=== PATIENT | male | born 1980 | race African-American/Black ===

== ENCOUNTER 2018-06-03 09:37 | Emergency (ER) | payer MEDICAID ==
--- NOTE | 2018-06-03 10:13 | ED Physician Chart ---
ED Chief Complaint/HPI - Patient Information Date Seen:: 06/03/18 Time Seen:: 09:50 Chief Complaint:: cough History of Present Illness:: Patient's had a cough for 3 weeks sometimes productive of green sputum. For the same 3 week period patient has had a right superior chest pain occasionally pleuritic. Allergies:: Allergies Allergy/AdvReac Type Severity Reaction Status Date / Time No Known Allergies Allergy Verified 06/03/18 09:49 Vitals:: Vital Signs - 8 hr 06/03/18 09:51 Temp 98.5 F HR 69 RR 18 BP 120/61 O2 Sat % 100 Historian:: Patient Review:: Nurse's Note Reviewed ED Review of Systems - Review of Systems General/Constitutional: No fever, No chills Skin: No skin lesions Head: No headache Eyes: No loss of vision ENT: No earache Neck: No neck pain, No swelling Cardio Vascular: No chest pain Pulmonary: No SOB, Cough, Sputum GI: No nausea, No vomiting, No diarrhea Musculoskeletal: No bone or joint pain, No muscle pain Psychiatric: No prior psych history, No depression Hematopoietic: No bruising Neurological: No syncope, No focal symptoms ED Past Medical History - Past Medical History Past Medical History: Other (history of bronchitis) Family History: None Social History: Smoker, Alcohol (smokes about one pack of cigarettes a day; drinks alcohol 3 times a week), Other Surgical History: None Psychiatricy History: None Medication: Reviewed Family Medical History - Family Member Mother History Unknown: Yes ED Physical Exam - Physical Examination General/Constitutional: Awake, Well-developed, well-nourished, Alert, No distress, GCS 15, Non-toxic appearing, Ambulatory Head: Atraumatic Eyes: Lids, conjuctiva normal, PERRL, EOMI Skin: Nl inspection, No rash, No skin lesions, No ecchymosis, Well hydrated, No lymphadenopathy ENMT: External ears, nose nl, Nasal exam nl, Lips, teeth, gums nl Neck: Nontender, Full ROM w/o pain, No JVD, No nuchal rigidity, No bruit, No mass, No stridor Respiratory: Nl effort/Exclusion, Clear to Auscultation, No Wheeze/Rhonchi/Rales Cardio Vascular: RRR, No murmur, gallop, rubs, NL S1 S2 GI: No tenderness/rebounding/guarding, No organomegaly, No hernia, Normal BS's, Nondistended, No mass/bruits, No McBurney tenderness : No CVA tenderness Extremities: No tenderness or effusion, Full ROM, normal strength in all extremities, No edema, Normal digits & nails Neuro/Psych: Alert/oriented, DTR's symmetric, Normal sensory exam, Normal motor strength, Judgement/insight normal, Mood normal, Normal gait, No focal deficits Misc: Normal back, No paraspinal tenderness ED Labs/Radiology/EKG Results - Radiology Results Results: Chest x-ray normal - EKG Interpretations Rate & Rhythm: normal sinus rhythm with a rate of 68 [place]: normal Comments:: J-point elevation especially in V5 and V6 compatible with early repolarization ED Assessment - Assessment General Assessment: Antibiotics would not be effective for viral infection ED Septic Shock - . Is Septic Shock (SBP<90, OR Lactate>4 mmol\L) present?: No - <6hrs of presentation: Vital Signs: Vital Signs - 8 hr //18 09:51 Temp 98.5 F HR 69 RR 18 BP 120/61 O2 Sat % 100 ED Reassessment (Disposition) - Reassessment Reassessment:: Patient noted to cough once during his emergency department stay. Reassessment Condition:: Unchanged - Diagnosis Diagnosis:: Viral bronchitis - Aftercare/Follow up Instructions Aftercare/Follow-Up Instructions:: Refer to Discharge Instructions - Patient Disposition Discharge/Transfer:: Home Condition at Disposition:: Stable, Unchanged
--- NOTE | 2018-06-03 11:50 | Diagnostic Imaging Report ---
CHEST X-RAY: AP view INDICATION: Cough COMPARISON: None FINDINGS: There is no focal consolidation or pleural effusions The heart is normal in size. There is mild tortuosity of the thoracic aorta. Mild degenerative changes of the spine are noted with mild scoliosis. IMPRESSION: No focal airspace consolidation identified.
== END 2018-06-03 10:32 | disposition home or self-care (01) ==
LOC: ER 09:37
DX: J20.8 Acute bronchitis due to other specified organisms (principal); F17.210 Nicotine dependence, cigarettes, uncomplicated
CPT/HCPCS: 71045-TC; 93005; Z7502